=== PATIENT | female | born 1960 | race Caucasian/White ===

== ENCOUNTER 2016-04-04 20:17 | Emergency (ER) | payer BC, OTHER ==
[~2016-04-04] VITALS: Ht 172.7 cm; Wt 118.0 kg
[~2016-04-04 20:17] MED LIST: BONI150T PO; CALC600T44 PO; HYDR-2768 PO; HYDROCORT; LASI20TA PO; LISI10TA PO; MAGNESIUM WITH ZINC; METHO500 PO; MILN100 OR; NEUR600T PO; POTA-243 PO; PRIL20CA PO; SIMV10; VENL-37; VITA400C28
[2016-04-04 20:18] VITALS: BP 164/80; PULSE 69; RESP 12; TEMP 97.6; O2SAT 97
[2016-04-05 01:35] VITALS: BP 176/84; PULSE 66; RESP 18; O2SAT 98
[2016-04-05] MEDS ORDERED: FURO20TA PO (01:52)
[2016-04-05] MEDS ORDERED: OXYC-432 PO (01:52)
[2016-04-05] MEDS ORDERED: POTA75TA2 PO (01:52)
[2016-04-05] MEDS ORDERED: HYDR25TA5 PO (01:52)
[2016-04-05] MEDS ORDERED: MIRA3350 PO (01:52)
[2016-04-05] MEDS ORDERED: LISI-515 PO (01:52)
[2016-04-05] MEDS ORDERED: AMLO10TA2 PO (01:52)
[2016-04-05] MEDS ORDERED: SIMV20TA PO (01:52)
[2016-04-05] MEDS ORDERED: FLUT50SP EACH NARE (01:52)
[2016-04-05] MEDS ORDERED: PRIM50TA5 PO (01:52)
[2016-04-05] MEDS ORDERED: LORA10TA PO (01:52)
[2016-04-05] MEDS ORDERED: OMEP20TA PO (01:52)
[2016-04-05] MEDS ORDERED: CLON0.5T PO (01:52)
[2016-04-05] MEDS ORDERED: BACL20TA PO (01:52)
[2016-04-05] MEDS ORDERED: ASPI81TA81 PO (01:52)
[2016-04-05] MEDS ORDERED: MOBI15TA PO (01:52)
[2016-04-05] MEDS ORDERED: MAGN250T2 PO (01:52)
[2016-04-05] MEDS ORDERED: HYDR20TA PO (01:52)
[2016-04-05] MEDS ORDERED: GABA800T PO (01:52)
[2016-04-05] MEDS ORDERED: VITA400C28 PO (01:52)
[2016-04-05] MEDS ORDERED: VENL75TA PO (01:52)
--- NOTE | 2016-04-05 02:08 | PD ---
HPI Chief Complaint: Headache Time Seen by Provider: 02:01 Travel History International Travel<30 days: No Contact w/Intl Traveler<30days: No Traveled to known affect area: No History of Present Illness HPI 55-year-old female presents to the emergency department by private transportation for complaint of headache for 2 weeks. 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 Patient reports she is followed by [facility] for her brain tumor issues. Patient has a primary care provider and has also been seen in urgent care recently. Patient did not contact her [facility] provider over the past 2 weeks while she's had headache. Patient states presently headache is 6/ 10 intensity has been as bad as 10 over 10 in intensity. Patient is also been intermittently treated for sinus and recurrent sinus infections. Patient is presently not on any antibiotic and denies fever chills nausea vomiting or sore throat neck pain cough congestion shortness of breath abdominal pain flank pain or other concerns. No yellow green sinus drainage. Patient has not been taking any medication for her symptoms. PFSH Past Medical History Hx Anticoagulant Therapy: Yes (ASA) Cardiovascular Problems: Yes (HTN) Hypertension: Yes Medical other: Yes (Pt states part of her liver was removed from cancer. ) Neurologic: Yes (VENOUS SHUNT) Influenza Vaccination: Yes ?: Not Past Surgical History Cholecystectomy: Yes Hysterectomy: Yes Neurologic Surgery: Yes (BRAIN [id number]-[id number]-RWMRO PLACED) Social History Alcohol Use: No Tobacco Use: No Substance Use: No Allergies-Medications (Allergen,Severity, Reaction): Coded Allergies: Prozac (Verified Allergy, Severe, RASH, 04/04/16) Zoloft (Verified Allergy, Severe, RASH, 04/04/16) Demerol (Verified Adverse Reaction, Severe, VOMITING, 04/04/16) Morphine (Verified Adverse Reaction, Severe, VOMITING, 04/04/16) Reported Meds & Prescriptions Reported Meds & Active Scripts Active Reported Miralax (Polyethylene Glycol 3350) 1 Pow Pow Unknown Dose PO BID Oxycodone-Acetaminophen 5-325 mg Tab 1 Tab PO BID PRN Baclofen 20 Mg Tab 20 Mg PO TID Clonazepam 0.5 Mg Tab 0.5 Mg PO BID Gabapentin 800 Mg Tab 800 Mg PO TID Vitamin D (Cholecalciferol) 400 Unit Cap Unknown Dose PO DAILY Loratadine 10 Mg Tab 10 Mg PO DAILY Primidone 50 Mg Tab 50 Mg PO DAILY Magnesium 250 Mg Tab 250 Mg PO DAILY Aspir-81 (Aspirin) 81 Mg Tabdr 91 Mg PO DAILY Furosemide 20 Mg Tab 20 Mg PO EVERY OTHER DAY Lisinopril 20 Mg Tab 20 Mg PO DAILY Simvastatin 20 Mg Tab 20 Mg PO DAILY Potassimin (Potassium) 75 Mg Tab 10 Meq PO TID Effexor (Venlafaxine HCl) 75 Mg Tab 75 Mg PO DAILY Omeprazole 20 Mg Tab 20 Mg PO DAILY Amlodipine (Amlodipine Besylate) 10 Mg Tab 10 Mg PO DAILY Hydrochlorothiazide 25 Mg Tab 25 Mg PO DAILY Hydrocortisone 20 Mg Tab 20 Mg PO DAILY Take with food to decrease GI upset Mobic (Meloxicam) 15 Mg Tab 15 Mg PO DAILY Fluticasone Nasal Cecil 50 Mcg/Act Naspr 50 Mcg EACH NARE BID 50 mcg/spray Review of Systems Except as stated in HPI: all other systems reviewed are Neg General / Constitutional: No: Fever, Chills Eyes: No: Diploplia, Blurred Vision, Photophobia HENT: Positive: Headaches, No: Neck Pain Cardiovascular: No: Chest Pain or Discomfort Respiratory: No: Shortness of Breath Gastrointestinal: No: Nausea, Vomiting Genitourinary: No: Flank Pain Musculoskeletal: No: Myalgias, Arthralgias Skin: No Rash Neurologic: Positive: Headache, No: Weakness, Dizziness, Syncope, Focal Abnormalities, Coordination Problem, Ataxia, Change in Mentation, Slurred Speech , Paresthesia, Seizures Psychiatric: No: Anxiety Hematologic/Lymphatic: No: Lymph Node Enlargement Physical Exam Narrative GENERAL: Well developed well-nourished female in no acute distress respiratory distress SKIN: Warm and dry. HEAD: Atraumatic. Normocephalic. EYES: Pupils equal and round. No scleral icterus. No injection or drainage. ENT: No nasal bleeding or discharge. Mucous membranes pink and moist. NECK: Trachea midline. No JVD. CARDIOVASCULAR: Regular rate and rhythm. RESPIRATORY: No accessory muscle use. Clear to auscultation. Breath sounds equal bilaterally. GASTROINTESTINAL: Abdomen soft, non-tender, nondistended. Hepatic and splenic margins not palpable. MUSCULOSKELETAL: Extremities without clubbing, cyanosis, or edema. No obvious deformities. NEUROLOGICAL: Awake and alert. No obvious cranial nerve deficits. Motor grossly within normal limits. Five out of 5 muscle strength in the arms and legs. Normal speech. PSYCHIATRIC: Appropriate mood and affect; insight and judgment normal. Data Data Last Documented VS Vital Signs Date Time Temp Pulse Resp B/P Pulse Ox O2 Delivery O2 Flow Rate FiO2 04/05/16 01:35 66 18 176/84 98 Room Air 04/04/16 20:[address] Brain W/O Iv Contrast(Rout) (04/05/16 ) Shunt Series (04/05/16 ) Basic Metabolic Panel (Bmp) (04/05/16 04:17) Potassium Chloride (Kcl) (04/05/16 05:45) Potassium Chlor 10 Meq Premix (Kcl 10 Me (04/05/16 05:45) Ketorolac Inj (Toradol Inj) (04/05/16 05:45) Labs Laboratory Tests Test 04/05/16 04:25 Sodium Level 141 MEQ/L Potassium Level 2.9 MEQ/L Chloride Level 104 MEQ/L Carbon Dioxide Level 32.4 MEQ/L Anion Gap 5 MEQ/L Blood Urea Nitrogen 10 MG/DL Creatinine 0.66 MG/DL Estimat Glomerular Filtration 93 ML/MIN Rate Random Glucose 82 MG/DL Calcium Level 9.0 MG/DL MDM Medical Decision Making Medical Screen Exam Complete: Yes Emergency Medical Condition: Yes Medical Record Reviewed: Yes (ED visit [address] Bray; patient has no local neurosurgeon or neurologist and has not had any follow-up regarding her shunt or neurosurgical history since 2012) Interpretation(s) CBC & BMP Diagram 04/05/16 04:25 Last Impressions Shunt Study (Imaging) 04/05/16 0000 Signed Impressions: Service Date/Time: Tuesday, April 05, 2016 02:53 - CONCLUSION: Intact shunt. Master Odom MD Head CT 04/05/16 0000 Signed Impressions: Service Date/Time: Tuesday, April 05, 2016 02:44 - CONCLUSION: 1. Surgical changes of the nose and sinuses, all contiguous as one cavity and with a defect of the floor of the anterior cranial fossa with frontal lobes herniating into the cavity. There is low attenuation of both frontal lobes, probably chronic encephalomalacia but a component of vasogenic edema not excludable. I don't have any priors. I don't see a mass or hemorrhage. 2. Shunted. Decompressed ventricles. Master Odom MD Differential Diagnosis Headache, shunt malfunction, brain tumor, sinusitis, viral syndrome Narrative Course Imaging studies ordered Case discussed with on-call neurosurgeon recommends basic metabolic panel to evaluate patient's sodium Patient's sodium is in normal range at 141 however the identified to have hypokalemia of 2.9 patient given oral potassium and IV potassium replacement Patient is stable for outpatient management and follow-up with her primary care provider and neurosurgical service as an outpatient Physician Communication Physician Communication discussed with Dr oTm ---follow up outpatient with Dr Bray Diagnosis Primary Impression: Cephalgia Additional Impressions: Hypokalemia H/O brain tumor Referrals: Neurosurgeon call for appointment contact prior NS Dr Bray or home service consultant NS Dr Tom Primary Care Physician call for appointment Patient Instructions: General Instructions Additional Instructions: Increase fluid hydration Add potassium came pain in foods and beverages to dietary intake Follow-up with your primary care provider call office in a.m. to schedule follow -up appointment Follow-up with neurosurgery call office to schedule appointment Return to the emergency department for pain fever vomiting or any concerns Med/Other Pt SpecificInfo: Prescription(s) given Scripts Potassium Chloride ER (Potassium Chloride CR)10 Meq Tab20 Meq PO DAILY 3 Days Prov:Enid Kay MD 04/05/16 Disposition: 01 DISCHARGE HOME Condition: Stable Enid Kay MD Apr 05, 2016 02:08
--- NOTE | 2016-04-05 03:05 | RADRPT ---
EXAM DATE/TIME: 04/05/2016 02:44 [facility] COMPARISON: No previous studies available for comparison. INDICATIONS : Headache for two weeks. RADIATION DOSE: 42.66 CTDIvol (mGy) MEDICAL HISTORY : Hypertension. brain cancer SURGICAL HISTORY : venous shunt, brain surgery ENCOUNTER: Initial ACUITY: 2 weeks PAIN SCALE: 10/10 LOCATION: cranial TECHNIQUE: Multiple contiguous axial images were obtained of the head. Using automated exposure control and adj ustment of the mA and/or kV according to patient size, radiation dose was kept as low as reasonably a chievable to obtain optimal diagnostic quality images. FINDINGS: I don't have any priors. Visualized portions of the paranasal sinuses are all one cavity contiguous w ith the nasal cavity and I believe there is a defect along the floor of the anterior cranial fossa wi th at least some herniation of both frontal lobes into the cavity. There is low attenuation of both f rontal lobes which has an apparent vasogenic pattern but slightly atypical encephalomalacia possible. No bleed seen. No mass, mass effect or midline shift. Patient is shunted. The ventriculostomy catheter enters via a right frontal approach and the tip is in the anterior horn of the right lateral ventricle. The ventricles are diffusely decompressed. CONCLUSION: 1. Surgical changes of the nose and sinuses, all contiguous as one cavity and with a defect of the fl oor of the anterior cranial fossa with frontal lobes herniating into the cavity. There is low attenua tion of both frontal lobes, probably chronic encephalomalacia but a component of vasogenic edema not excludable. I don't have any priors. I don't see a mass or hemorrhage. 2. Shunted. Decompressed ventricles. Master Odom MD on April 05, 2016 at 2:57 Board Certified Radiologist. This report was verified electronically.
--- NOTE | 2016-04-05 03:28 | RADRPT ---
EXAM DATE/TIME: 04/05/2016 02:53 [facility] COMPARISON: No previous studies available for comparison. INDICATIONS : Headaches. MEDICAL HISTORY : Hypertension. Brain cancer SURGICAL HISTORY : Hysterectomy. Cholecystectomy. Shunt ENCOUNTER: Initial ACUITY: 2 weeks PAIN SCORE: 2/10 LOCATION: Bilateral upper quadrant FINDINGS: Radiograph of the skull, neck, chest and abdomen performed to evaluate shunt patency. The shunt cath eter is seen entering the right frontal region with its tip in the region of the anterior horn of the right lateral ventral The catheter is continuous in its course terminating in the left pelvis peritoneal cavity No catheter disruption is identified. The visualized heart, lungs and abdominal structures are intact. CONCLUSION: Intact shunt. Master Odom MD on April 05, 2016 at 3:25 Board Certified Radiologist. This report was verified electronically.
[2016-04-05 05:00] LABS: BICARBONATE 32.4 MEQ/L (21.0-32.0)
[2016-04-05 05:05] LABS: POTASSIUM 2.9 MEQ/L (3.5-5.1)
[2016-04-05] MEDS ORDERED: POTA10TA8 PO (05:40)
[2016-04-05] MEDS ORDERED: KETOROLAC TROMETHAMINE 30 MG/ML (IVP) VIAL IV PUSH ONE (05:45)
[2016-04-05] MEDS ORDERED: POTASSIUM CHLORIDE 20 MEQ CONTROLLED RELEASE TAB PO ONE (05:45)
[2016-04-05] MEDS ORDERED: POTASSIUM CHLOR 10 MEQ PREMIX 100 ML IV ONE (05:45)
[2016-04-05 05:52] VITALS: BP 167/74; PULSE 50; RESP 18; O2SAT 98
== END 2016-04-05 07:41 | disposition home or self-care (01) ==
LOC: NEPC 20:17
DX: R51 Headache (principal); I10 Essential (primary) hypertension; E87.6 Hypokalemia; Z79.82 Long term (current) use of aspirin; Z85.841 Personal history of malignant neoplasm of brain; Z98.2 Presence of cerebrospinal fluid drainage device
CPT/HCPCS: 70250; 70450; 71010; 72040; 74000; 80048; 96365; 96375; 99284; J1885; J3480

== ENCOUNTER → 2016-05-26 | Outpatient (CLI) | payer BC ==
[~2016-05-26] MED LIST changes: +AMLO10TA2 PO; +ASPI81TA81 PO; +BACL20TA PO; -BONI150T PO; -CALC600T44 PO; +CLON0.5T PO; +FLUT50SP EACH NARE; +FURO20TA PO; +GABA800T PO; +GADODIAMIDE PF 287 MG/ML 20 ML VIAL (for RAD MRI) IV ONE; -HYDR-2768 PO; +HYDR20TA PO; +HYDR25TA5 PO; -HYDROCORT; -LASI20TA PO; +LISI-515 PO; -LISI10TA PO; +LORA10TA PO; +MAGN250T2 PO; -MAGNESIUM WITH ZINC; -METHO500 PO; -MILN100 OR; +MOBI15TA PO; -NEUR600T PO; +OMEP20TA PO; +OXYC-432 PO; -POTA-243 PO; +POTA10TA8 PO; +POTA75TA2 PO; -PRIL20CA PO; +PRIM50TA5 PO; -SIMV10; +SIMV20TA PO; -VENL-37; +VENL75TA PO; -VITA400C28; +VITA400C28 PO
--- NOTE | 2016-05-26 09:39 | RADRPT ---
EXAM DATE/TIME: 05/26/2016 08:00 [facility] COMPARISON: No previous studies available for comparison. INDICATIONS : Evaluate shunt settings prior to MRI. MEDICAL HISTORY : Hypertension. brain cancer SURGICAL HISTORY : venous shunt, brain surgery ENCOUNTER: Initial ACUITY: 1 day PAIN SCORE: 0/10 LOCATION: skull FINDINGS: Targeted examination of the skull demonstrates no evidence of fracture. Bony mineralization is ella l. Pre-and post MR images of the patient's [employer]ICAL RESOURCE MANAGER shunt valve were obtained en-face. Position of the valve d ial is stable pre-and post at P/L 1.0 CONCLUSION: Pre-and post MR images of the patient's [employer]INICAL RESOURCE MANAGER shunt valve appear to be stable with a P/L value of 1.0 Reno Moncada MD on May 26, 2016 at 9:31 Board Certified Radiologist. This report was verified electronically.
--- NOTE | 2016-05-26 09:57 | RADRPT ---
EXAM DATE/TIME: 05/26/2016 08:18 [facility] COMPARISON: CT BRAIN W/O CONTRAST, April 05, 2016, 2:44. INDICATIONS : Tumor. CONTRAST: 20 cc Omniscan (gadodiamide) IV MEDICAL HISTORY : Brain tumor. SURGICAL HISTORY : Cholecystectomy. Craniotomy. Hysterectomy. Shunt placement. ENCOUNTER: Subsequent ACUITY: > 1 year PAIN SCORE: 0/10 LOCATION: Head. TECHNIQUE: Multiplanar, multisequence MRI of the brain was performed both prior to and following the administrat ion of paramagnetic contrast. FINDINGS: There are areas of nodular focal dural thickening and enhancement measuring 12 mm within the left fro ntal lobe, 12 mm within the midline, 6 mm within the right frontal lobe and 8 mm within the inferior aspect of t he left medial frontal region. 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 Ence phalomalacia is noted within the subcortical frontal white matter bilaterally. A right frontal ventriculostomy shunt is noted with its tip in the midline in the expected region of the frontal horn of the right lateral ventricle. Mi ld periventricular white matter small vessel ischemic changes are noted bilaterally. There is no acute infarct, acute h emorrhage, midline shift or extraaxial fluid collections. There is no evidence of hydrocephalus. CONCLUSION: 1. Focal nodular dural thickening and enhancement within the region of the frontal lobes bilaterally measuring 12 mm in the left frontal lobe, 12 mm within the midline, 6 mm within the right frontal lo be and 8 mm within the inferior medial portion of the left frontal lobe. 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 2. Encephalomalacia involving the subcortical white matter of the frontal lobes bilaterally. 3. Mild periventricular white matter small vessel ischemic changes bilaterally. 4. No acute infarct, acute hemorrhage, midline shift or extraaxial fluid collections. 5. No evidence of hydrocephalus. Emre Rowell MD on May 26, 2016 at 9:32 Board Certified Radiologist. This report was verified electronically.
== END ==
LOC: HRAD 07:06
PROVIDERS: ATTEND Neurological Surgery
DX: Z87.898 Personal history of other specified conditions (principal)
CPT/HCPCS: 70250; 70553; A9579